=== PATIENT | male | born 2000 | race Caucasian/White ===

== ENCOUNTER 2025-01-05 08:45 | Day surgery (SDC) | payer BC, OTHER ==
[2025-01-05] MEDS ORDERED: Propofol 200 MG/20 ML SDV ONE ×2 (09:18→10:33)
[2025-01-05] MEDS ORDERED: Midazolam 1 MG/ML 2 ML SDV ONE (09:18)
[2025-01-05] MEDS ORDERED: fentaNYL 50 MCG/ML SDV ONE (09:18)
[2025-01-05] MEDS: Lactated Ringers 1,000 ML IV SCH (09:32)
[2025-01-05 11:22] VITALS: BP 124/79; PULSE 65
== END 2025-01-05 11:30 | disposition home or self-care (01) ==
LOC: JP.SDS 08:45
PROVIDERS: ATTEND Surgery
DX: K57.30 Diverticulosis of large intestine without perforation or abscess without bleeding (principal); Z79.899 Other long term (current) drug therapy
CPT/HCPCS: 00812; 45378; J2250; J2704; J3010; J7120